=== PATIENT | male | born 1990 | race Two or more races ===

== ENCOUNTER 2017-05-22 20:54 | Emergency (ER) | payer OTHER ==
[~2017-05-22] VITALS: Ht 188 cm; Wt 99.8 kg
[2017-05-22] MEDS ORDERED: METFORMIN HCL1000 M1 ORAL (21:03)
[2017-05-22 21:40] LABS: BASOPHILS % (AUTO) 1.3 % (0.0-2.0); EOSINOPHILS % (AUTO) 2.7 % (0.0-3.0); HEMATOCRIT 45.4 % (42.0-52.0); HEMOGLOBIN 14.4 G/DL (14.2-18.0); LYMPHOCYTES % (AUTO) 24.5 % (20.0-45.0); MEAN CORPUSCULAR VOLUME 92 FL (80-99); MONOCYTES % (AUTO) 6.6 % (1.0-10.0); NEUTROPHILS % (AUTO) 64.9 % (45.0-75.0); PLATELET COUNT 239 K/UL (150-450); RED BLOOD COUNT 4.92 M/UL (4.70-6.10); RED CELL DISTRIBUTION WIDTH 11.9 % (11.6-14.8)
--- NOTE | 2017-05-22 21:52 | Emergency Room Report ---
History of Present Illness General Chief Complaint: Syncope Source: Patient, Family Member, EMS Present Illness HPI The patient presents with syncope. He is diabetic and was recently switched from insulin to metformin according to EMS. His Mom states he was only on insulin when in the hospital in February. He's been having polyuria and polydipsia. He felt dizzy when he stood up. He passed out and hit the back of his head when he fell. Ground-level fall. Is complaining about pain there in the back of his head. He will like a number of. There is a hematoma. Mom states there was no seizure activity. The patient denies fevers, chest pain, nausea, vomiting, diarrhea, dysuria, neck pain, extremity pain. He's felt generally weak recently. Allergies: Coded Allergies: No Known Allergies (Unverified , 05/22/17) Patient History Past Medical History: see triage record Social History: Denies: smoking, alcohol use, drug use Social History Narrative at home with parents Reviewed Nursing Documentation: PMH: Agreed, PSxH: Agreed Nursing Documentation-PMH Past Medical History: No History, Except For Hx Diabetes: Yes Review of Systems All Other Systems: negative except mentioned in HPI Physical Exam Vital Signs Date Time Temp Pulse Resp B/P (MAP) Pulse Ox O2 Delivery O2 Flow Rate FiO2 05/22/17 20:57 98.6 80 16 114/70 100 Room Air Sp02 EP Interpretation: reviewed, normal General Appearance: well appearing, no apparent distress, GCS 15 Head: normocephalic Eyes: bilateral eye PERRL, bilateral eye other - dyscongugate gaze ENT: moist mucus membranes - no lingual trauma Neck: supple Respiratory: lungs clear, normal breath sounds Cardiovascular #1: regular rate, rhythm Cardiovascular #2: 2+ radial (R) Gastrointestinal: normal inspection, normal bowel sounds, non tender, no mass, non-distended Musculoskeletal: back normal, normal range of motion, no calf tenderness, other - occasional muscle cramps Neurologic: alert, oriented x3, motor strength/tone normal, DTRs symmetric, sensory intact, cerebellar normal, normal gait, speech normal Psychiatric: depressed affect Skin: normal inspection, warm/dry Medical Decision Making Diagnostic Impression: Primary Impression: Syncope Qualified Codes: R55 - Syncope and collapse Additional Impressions: Hyperglycemia Hypomagnesemia ER Course The patient presents with syncope with history of diabetes. His blood sugar is high at this time. Differential includes diabetic U. acidosis, hyperglycemia, dehydration, head contusion versus bleed, occult infection amongst others. Evaluation will be with EKG, chest x-ray, CT of the head and labs. The patient will receive IV hydration. Based on his repeat Accu-Chek he will most likely receive IV insulin here. He does not Aplisol respirations and therefore diabetic ketoacidosis his lower on the differential. Patient still with "Hi" glucose after bolus. Lab with 561. Not DKA. Insulin given IV. Patient with severe muscle cramps. Magnesium low. Ativan given IV with some improvement. Magnesium ordered. Again with muscle spasms. Morphine ordered with some improvement. Repeat glucose 367. Repeat IV insulin. Final accucheck = 306. Patient needs to be on insulin. Also due to muscle spasms, will be transferred for hospitalization. Discussed with Dr. Hickman. Transfer [facility]. Serious but stable. Laboratory Tests Test 05/22/17 21:15 White Blood Count 10.0 K/UL (4.8-10.8) Red Blood Count 4.92 M/UL (4.70-6.10) Hemoglobin 14.4 G/DL (14.2-18.0) Hematocrit 45.4 % (42.0-52.0) Mean Corpuscular Volume 92 FL (80-99) Mean Corpuscular Hemoglobin 29.4 PG (27.0-31.0) Mean Corpuscular Hemoglobin Concent 31.8 G/DL (32.0-36.0) L Red Cell Distribution Width 11.9 % (11.6-14.8) Platelet Count 239 K/UL (150-450) Mean Platelet Volume 8.0 FL (6.5-10.1) Neutrophils (%) (Auto) 64.9 % (45.0-75.0) Lymphocytes (%) (Auto) 24.5 % (20.0-45.0) Monocytes (%) (Auto) 6.6 % (1.0-10.0) Eosinophils (%) (Auto) 2.7 % (0.0-3.0) Basophils (%) (Auto) 1.3 % (0.0-2.0) Sodium Level 135 MMOL/L (136-145) L Potassium Level 4.7 MMOL/L (3.5-5.1) Chloride Level 98 MMOL/L (98-107) Carbon Dioxide Level 28 MMOL/L (21-32) Anion Gap 9 mmol/L (5-15) Blood Urea Nitrogen 16 mg/dL (7-18) Creatinine 0.9 MG/DL (0.55-1.30) Estimate Glomerular Filtration Rate > 60 mL/min (>60) Glucose Level 561 MG/DL (74-106) *H Calcium Level 9.8 MG/DL (8.5-10.1) Magnesium Level 1.6 MG/DL (1.8-2.4) L Total Bilirubin 0.5 MG/DL (0.2-1.0) Aspartate Amino Transferase (AST) < 5 U/L (15-37) L Alanine Aminotransferase (ALT) 8 U/L (12-78) L Alkaline Phosphatase 136 U/L (46-116) H Total Protein 8.3 G/DL (6.4-8.2) H Albumin 3.9 G/DL (3.4-5.0) Globulin 4.4 g/dL Albumin/Globulin Ratio 0.9 (1.0-2.7) L Lipase 135 U/L (73-393) Acetone Level Positive-small (NEGATIVE) EKG Diagnostic Results Rate: normal Rhythm: NSR ST Segments: no acute changes Rhythm Strip Diag. Results EP Interpretation: yes Rhythm: NSR, no PVC's, no ectopy Chest X-Ray Diagnostic Results Chest X-Ray Diagnostic Results : Chest X-Ray Ordered: Yes # of Views/Limited/Complete: 1 View Indication: Other EP Interpretation: Yes Interpretation: no consolidation, no effusion, no pneumothorax, no acute cardiopulmonary disease, other - poor inspiration Impression: No acute disease Electronically Signed by: Electronically signed by Tavo Gomez MD CT/MRI/US Diagnostic Results CT/MRI/US Diagnostic Results : Imaging Test Ordered: head Impression no bleed, mass. Hematoma. Last Vital Signs Date Time Temp Pulse Resp B/P (MAP) Pulse Ox O2 Delivery O2 Flow Rate FiO2 05/23/17 01:21 81 16 92/58 95 Room Air 05/22/17 23:50 98.6 Status: improved Disposition: XFER SHT-TRM HOSP Condition: Serious - stable for transfer Tavo Gomez M.D. May 22, 2017 21:52
[2017-05-22 22:03] LABS: ALANINE AMINOTRANSFERASE 8 U/L (12-78); ALBUMIN 3.9 G/DL (3.4-5.0); ALBUMIN/GLOBULIN RATIO 0.9 (1.0-2.7); ALKALINE PHOSPHATASE 136 U/L (46-116); ANION GAP 9 mmol/L (5-15); BILIRUBIN,TOTAL 0.5 MG/DL (0.2-1.0); BLOOD UREA NITROGEN 16 mg/dL (7-18); CALCIUM 9.8 MG/DL (8.5-10.1); CARBON DIOXIDE 28 MMOL/L (21-32); CHLORIDE 98 MMOL/L (98-107); CREATININE 0.9 MG/DL (0.55-1.30); POTASSIUM 4.7 MMOL/L (3.5-5.1); SODIUM 135 MMOL/L (136-145)
[2017-05-22 22:13] LABS: ASPARTATE AMINO TRANSFERASE < 5 U/L (15-37)
[2017-05-22] MEDS ORDERED: LORazepam Inj 2mg/ml 1ml IV ONE (23:00)
[2017-05-22 23:10] VITALS: BP 109/63
[2017-05-22] MEDS ORDERED: Morphine Sulfate 4mg/ml Inj IVP ONE (23:45)
[2017-05-22 23:50] VITALS: BP 123/85
[2017-05-23 01:21] VITALS: BP 92/58
--- NOTE | 2017-05-23 08:51 | Diagnostic Imaging Report ---
Indication: Trauma altered mental status Technique: Continuous helical CT scanning of the head was performed without intravenous contrast material. Axial and coronal 5 mm sections were generated. Dose: Total Dose Length Product - DLP [address] Dose Index - CTDIvol(s) 70.38 mGy. Automated exposure control was utilized for dose reduction. Comparison:None. Findings: The ventricular system is normal in size and configuration. There is no shift of midline structures. No abnormal extra-axial fluid collections are noted. There is no evidence of intracerebral bleeding. No other abnormal high or low density areas are noted within the brain. There is hyperostosis in the calvarium. Impression: Normal CT scan of the head without contrast material. Calvarial hyperostosis. The above report is concordant with preliminary reading by [facility] with minor difference. The CT scanner at [facility] is accredited by the [employer] and the scans are performed using protocols designed to limit radiation exposure to as low as reasonably achievable to attain images of sufficient resolution adequate for diagnostic evaluation.
--- NOTE | 2017-05-23 09:24 | Diagnostic Imaging Report ---
Indication: Reason For Exam: SYNCOPE Technique: XRAY Chest 1v Comparison: None. Findings: The patient has taken a poor inspiration. The cardiomediastinal silhouette is normal. The lungs are clear. There is no evidence of pleural fluid. The bony structures are unremarkable. Impression: Poor inspiratory chest. Otherwise grossly negative.
--- NOTE | 2017-06-03 17:47 | Cardiology Report ---
APPROVED REPORT EKG Measurement Heart [id number] ME [id number] Normal sinus rhythm Nonspecific ST abnormality Abnormal ECG
== END 2017-05-23 01:26 | disposition short-term general hospital (02) ==
LOC: EDBD 20:54 → EMR 21:15 → ENRESERV 05-23 00:56 → EMR 05-23 01:26
DX: R55 Syncope and collapse (principal); E11.65 Type 2 diabetes mellitus with hyperglycemia; E83.42 Hypomagnesemia; M62.838 Other muscle spasm; Z79.84 Long term (current) use of oral hypoglycemic drugs
CPT/HCPCS: 36415; 70450; 71045; 80053; 82009; 83690; 83735; 85025; 93005; 96361; 96374; 96375; 99285; J1815; J2270; J2405